=== PATIENT | male | born 1985 | race Caucasian/White ===

== ENCOUNTER → 2020-11-14 | Outpatient (CLI) | payer BC ==
--- NOTE | 2020-11-14 14:21 | US ---
EXAMINATION TYPE: US kidneys/renal and bladder DATE OF EXAM: 11/14/2020 COMPARISON: NONE CLINICAL HISTORY: N20.0 Calculus of kidney. left flank pain EXAM MEASUREMENTS: Right Kidney: 12.3 x 4.9 x 5.4 cm Left Kidney: 11.9 x 6.1 x 4.9 cm *limitations due to patient's body habitus and overlying bowel content Right Kidney: no evidence of hydronephrosis Left Kidney: no evidence of hydronephrosis Bladder: appears wnl Bilateral Jets seen: no IMPRESSION: Normal renal ultrasound
== END ==
LOC: RADUSWWP 13:29
PROVIDERS: ATTEND Family Medicine
DX: N20.0 Calculus of kidney (principal)
CPT/HCPCS: 76770

== ENCOUNTER → 2021-07-21 | Outpatient (CLI) | payer BC ==
[2021-07-21 17:29] LABS: Basophils # (A) 0.07 X 10*3/uL (0.00-0.10); Basophils % (A) 0.7 %; Eosinophils % (A) 2.1 %; HCT 42.3 % (39.6-50.0); HGB 13.2 g/dL (13.0-17.0); Lymphocytes # (A) 1.93 X 10*3/uL (0.90-5.00); Lymphocytes % (A) 20.4 %; MCH 26.8 pg (27.0-32.0); MCHC 31.2 g/dL (32.0-37.0); MCV 85.8 fL (80.0-97.0); Mean Platelet Volume 11.2 fL (9.5-12.2); Monocytes # (A) 1.16 X 10*3/uL (0.20-1.00); Monocytes % (A) 12.3 %; Neutrophils % (A) 63.4 %; Platelet Count 273 X 10*3/uL (140-440); RBC 4.93 X 10*6/uL (4.40-5.60); WBC 9.46 X 10*3/uL (4.50-10.00)
[2021-07-21 18:02] LABS: ALT 48 U/L (10-49); AST 25 U/L (14-35); African American GFR (CKD) 127.4 (60.0-200.0); Albumin 4.6 g/dL (3.8-4.9); Albumin/Globulin Ratio 2.01 (1.60-3.17); Alkaline Phosphatase 62 U/L (41-126); BUN/Creat Ratio 16.49 Ratio (12.00-20.00); Blood Urea Nitrogen 14.2 mg/dL (9.0-27.0); Calcium 9.5 mg/dL (8.7-10.3); Carbon Dioxide 28.7 mmol/L (21.6-31.8); Chloride 102 mmol/L (96-109); Globulin 2.3 g/dL (1.6-3.3); Glucose 107 mg/dL (70-110); LDL Cholesterol,Calculated 83.5 mg/dL (0.0-131.0); Potassium 4.2 mmol/L (3.5-5.5); Sodium 141 mmol/L (135-145); Total Protein 6.9 g/dL (6.2-8.2)
== END | disposition home or self-care (01) ==
LOC: LABWHC1 07-20 09:24
PROVIDERS: ATTEND Family Medicine
DX: I10 Essential (primary) hypertension (principal); E11.9 Type 2 diabetes mellitus without complications; E66.01 Morbid (severe) obesity due to excess calories; Z68.41 Body mass index [BMI] 40.0-44.9, adult
CPT/HCPCS: 36415; 80053; 80061; 82043; 82570; 83036; 85025

== ENCOUNTER → 2023-02-03 | Outpatient (CLI) | payer BC ==
[2023-02-03 19:58] LABS: Basophils # (A) 0.06 X 10*3/uL; Basophils % (A) 0.8 %; Eosinophils # (A) 0.23 X 10*3/uL; Eosinophils % (A) 2.9 %; HCT 44.3 %; HGB 14.1 d/dL; Lymphocytes # (A) 1.86 X 10*3/uL; Lymphocytes % (A) 23.4 %; MCHC 31.8 d/dL; MCV 84.7 FL; Mean Platelet Volume 11.4 FL; Monocytes # (A) 1.01 X 10*3/uL; Monocytes % (A) 12.7 %; NRBC Per 100 WBC 0 X 10*3/uL; Neutrophils # (A) 4.73 X 10*3/uL; Neutrophils % (A) 59.4 %; Platelet Count 250 X 10*3/uL; RBC 5.23 X 10*6/uL; WBC 7.95 X 10*3/uL
[2023-02-03 20:46] LABS: ALT 35 U/L; AST 24 U/L; Albumin 4.6 d/dL; Albumin/Globulin Ratio 1.84 Ratio; Alkaline Phosphatase 65 U/L; BUN/Creat Ratio 18.78 Ratio; Blood Urea Nitrogen 16.9 mg/dL; Calcium 9.9 mg/dL; Chloride 101 mmol/L; Chol/HDL Ratio 5.34 Ratio; Globulin 2.5 d/dL; Glucose 86 mg/dL; Potassium 4.2 mmol/L; Sodium 141 mmol/L; Total Bilirubin 0.5 mg/dL; Total Protein 7.1 d/dL
== END | disposition home or self-care (01) ==
LOC: LABWHC1 12:45
PROVIDERS: ATTEND Family Medicine
DX: Z00.00 Encounter for general adult medical examination without abnormal findings (principal); I10 Essential (primary) hypertension
CPT/HCPCS: 36415; 80053; 80061; 82306; 84443; 85025

== ENCOUNTER 2023-04-28 20:40 | Emergency (ER) | payer OTHER, BC ==
[2023-04-28 20:48] VITALS: RESP 18; TEMP 98.2
[2023-04-28] MEDS ORDERED: FLUORESCEIN STRIPS 1 MG STRIP RIGHT EYE ONE (22:27)
--- NOTE | 2023-04-28 22:57 | ED ---
Eye Problem HPI - General Chief complaint: Eye Problems Stated complaint: Eye injury Time Seen by Provider: 04/28/23 22:07 Source: patient Mode of arrival: ambulatory Limitations: no limitations - History of Present Illness Initial comments: The patient is a 38-year-old gentleman with history of diabetes presents emergency room with complaints of a contusion with bleeding to the right eye. Patient was at work at 9 AM and a small tool flew up and hit him in the right eye. He had some mild discomfort for a few seconds otherwise had no pain. Patient continued to work the rest of the day but when he got home this evening he noticed the eye was bleeding. He believes it is coming from the inner lower eyelid. Patient denies any pain to the eye. He denies any pain with eye movement or any sensitivity to light. He denies any excessive tearing. He denies any vision changes. Patient does not wear contacts or glasses. - Related Data Patient Tetanus UTD: Yes Previous Rx's Medication Instructions Recorded Ondansetron Odt [Zofran Odt] 4 mg PO Q8HR PRN #20 tab 10/22/22 Tobramycin 0.3% Ophth Soln [Tobrex 2 drop RIGHT EYE Q4H 7 Days #7 ml 04/28/23 0.3% Ophth Soln] Allergies Allergy/AdvReac Type Severity Reaction Status Date / Time No Known Allergies Allergy Verified 10/22/22 04:42 Review of Systems ROS Statement: Those systems with pertinent positive or pertinent negative responses have been documented in the HPI. ROS Other: All systems not noted in ROS Statement are negative. Past Medical History Past Medical History: Diabetes Mellitus, Hypertension Past Surgical History: No Surgical Hx Reported Past Psychological History: No Psychological Hx Reported Smoking Status: Never smoker Past Alcohol Use History: None Reported Past Drug Use History: None Reported General Exam Limitations: no limitations, language barrier General appearance: in no apparent distress Head exam: Present: normal inspection, other (Mild ecchymosis to the right lower parapatellar region without any significant swelling. No lacerations.) Eye exam: Present: PERRL, EOMI, conjunctival injection, other (Diffuse subconjunctival hemorrhage, no globe involvement or trauma, no blood in the anterior chamber no significant periorbital swelling,) Expanded Eyelids: Laceration: Right (Small superficial laceration at the base of the eye follower the right lower lid meets) Sclera/Conjunctival: Normal Inspection: Right (No fluorescein uptake no warm all slit-lamp exam), Hemorrhage: Right (Diffuse hemorrhage) Anterior chamber: Normal Inspection: Right IOP (R) in mmH IOP (L) in mmH IOP measured with: Tonopen Course Vital Signs 04/28/23 20:44 Temperature 98.2 F Pulse Rate 88 Respiratory 18 Rate Blood Pressure 144/92 O2 Sat by Pulse 98 Oximetry - Reevaluation(s) Reevaluation #1: 04/28/23 23:58 Patient had tobramycin applied in the emergency room. He will be discharged home with a prescription for tobramycin that he is to take. Discussed following up with education and development manager and signs return to the emergency room. Again patient's pressures are within normal limits. No pain with EOM and no visual disturbances. He has no sensitivity to light. Tetanus is up-to-date. There is no abrasions seen on the fluoroscein and peralta lamp and slit-lamp exam Medical Decision Making - Medical Decision Making Was pt. sent in by a medical professional or institution (, PA, HANGER OFF, urgent care, hospital, or senior care...) When possible be specific @ -[No] Did you speak to anyone other than the patient for history (EMS, parent, family, police, friend...)? What history was obtained from this source @ -[No] Did you review nursing and triage notes (agree or disagree)? Why? @ -[I reviewed and agree with nursing and triage notes] Were old charts reviewed (outside hosp., previous admission, EMS record, old EKG, old radiological studies, urgent care reports/EKG's, senior care records)? Report findings @ -[No old charts were reviewed] Differential Diagnosis (chest pain, altered mental status, abdominal pain women, abdominal pain men, vaginal bleeding, weakness, fever, dyspnea, syncope, headache, dizziness, GI bleed, back pain, seizure, CVA, palpatations, mental health, musculoskeletal)? @ -Ruptured globe, corneal abrasion, subconjunctival hemorrhage EKG interpreted by me (3pts min.). @ -[As above] X-rays interpreted by me (1pt min.). @ -[None done] CT interpreted by me (1pt min.). @ -[None done] U/S interpreted by me (1pt. min.). @ -[None done] What testing was considered but not performed or refused? (CT, X-rays, U/S, labs)? Why? @ -[None] What meds were considered but not given or refused? Why? @ -[None] Did you discuss the management of the patient with other professionals (professionals i.e. , PA, HANGER OFF, lab, RT, psych nurse, health and social care teacher, die repairer forging, teacher, international first officer, wrapper caser)? Give summary @ -Discussed patient's injury, workup and management with the attending ED physician Dr. Carcamo Was smoking cessation discussed for >3mins.? @ -[No] Was critical care preformed (if so, how long)? @ -[No] Were there social determinants of health that impacted care today? How? (Homelessness, low income, unemployed, alcoholism, drug addiction, transportation, low edu. Level, literacy, decrease access to med. care, prison, rehab)? @ -[No] Was there de-escalation of care discussed even if they declined (Discuss DNR or withdrawal of care, Hospice)? DNR status @ -[No] What co-morbidities impacted this encounter? (DM, HTN, Smoking, COPD, CAD, Cancer, CVA, ARF, Chemo, Hep., AIDS, mental health diagnosis, sleep apnea, morbi d obesity)? @ -Diabetes Was patient admitted / discharged? Hospital course, mention meds given and route, prescriptions, significant lab abnormalities, going to OR and other pertinent info. @ -Patient is stable to follow up as an outpatient with education and development manager. He does not require admission at this time. Understands I return to the emergency room. Undiagnosed new problem with uncertain prognosis? @ -Subconjunctival hemorrhage, superficial eyelid laceration,. Perioorbital contusion Drug Therapy requiring intensive monitoring for toxicity (Heparin, Nitro, Insulin, Cardizem)? @ -[No] Were any procedures done? @ -[No] Diagnosis/symptom? @ -Subconjunctival hemorrhage, superficial eyelid laceration,. Perioorbital contusion Acute, or Chronic, or Acute on Chronic? @ -Acute Uncomplicated (without systemic symptoms) or Complicated (systemic symptoms)? @ -Uncomplicated Side effects of treatment? @ -[No] Exacerbation, Progression, or Severe Exacerbation? @ -[No] Poses a threat to life or bodily function? How? (Chest pain, [place], [place], pneumonia, PE, COPD, DKA, ARF, appy, cholecystitis, CVA, Diverticulitis, Homicidal, Suicidal, threat to staff... and all critical care pts) @ -[No] Disposition Clinical Impression: Eyelid laceration, right, Subconjunctival hemorrhage, Periorbital contusion Disposition: HOME SELF-CARE Condition: Good Instructions (If sedation given, give patient instructions): Tobramycin (Into the eye), Subconjunctival Hemorrhage (ED) Prescriptions: Tobramycin 0.3% Ophth Soln [Tobrex 0.3% Ophth Soln] 2 drop RIGHT EYE Q4H 7 Days #7 ml Is patient prescribed a controlled substance at d/c from ED?: No Referrals: Kristofer Sierra MD [Primary Care Provider] - 1-2 days Kenny Smith MD [STAFF PHYSICIAN] - 1-2 days Time of Disposition: 11:50
[2023-04-28] MEDS ORDERED: TOBRAMYCIN 0.3% OPHTH DROPS 5 ML BTL RIGHT EYE STA (23:13)
[2023-04-29 00:02] VITALS: BP 137/90; PULSE 80
== END 2023-04-29 00:02 | disposition home or self-care (01) ==
LOC: EC 20:40
DX: S01.111A Laceration without foreign body of right eyelid and periocular area, initial encounter (principal); H11.31 Conjunctival hemorrhage, right eye; E11.9 Type 2 diabetes mellitus without complications; I10 Essential (primary) hypertension; W22.8XXA Striking against or struck by other objects, initial encounter
CPT/HCPCS: 99283

== ENCOUNTER 2023-09-12 15:37 | Emergency (ER) | payer OTHER, BC ==
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
[2023-09-12 17:04] LABS: Basophils # (A) 0.1 k/uL (0-0.2); Basophils % (A) 0 %; Eosinophils # (A) 0.3 k/uL (0-0.7); Eosinophils % (A) 3 %; HCT 41.5 % (39.0-53.0); HGB 13.8 gm/dL (13.0-17.5); Lymphocytes # (A) 2.2 k/uL (1.0-4.8); Lymphocytes % (A) 19 %; MCH 27.4 pg (25.0-35.0); MCHC 33.2 g/dL (31.0-37.0); MCV 82.5 fL (80.0-100.0); Monocytes # (A) 0.9 k/uL (0-1.0); Monocytes % (A) 8 %; Neutrophils # (A) 7.7 k/uL (1.3-7.7); Neutrophils % (A) 68 %; Platelet Count 265 k/uL (150-450); RBC 5.03 m/uL (4.30-5.90); RDW 13.9 % (11.5-15.5); WBC 11.3 k/uL (3.8-10.6)
[2023-09-12 17:11] LABS: ALT 36 U/L (4-49); AST 32 U/L (17-59); African American GFR (CKD) >90 (>60 ml/min/1.73 sqM); Albumin 4.4 g/dL (3.5-5.0); Alkaline Phosphatase 75 U/L (38-126); Blood Urea Nitrogen 13 mg/dL (9-20); Calcium 9.4 mg/dL (8.4-10.2); Carbon Dioxide 29 mmol/L (22-30); Glucose 85 mg/dL (74-99); Non-African American GFR(CKD) >90 (>60 ml/min/1.73 sqM); Total Bilirubin 0.5 mg/dL (0.2-1.3); Total Protein 7.4 g/dL (6.3-8.2)
[2023-09-12 17:18] LABS: Partial Thromboplastin Time 26.7 sec (22.0-30.0); Prothrombin Time 10.8 sec (10.0-12.5)
[2023-09-12 17:26] LABS: Anion Gap 10 mmol/L; Chloride 100 mmol/L (98-107); Potassium 3.9 mmol/L (3.5-5.1); Sodium 139 mmol/L (137-145)
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
--- NOTE | 2023-09-12 18:01 | XR ---
EXAMINATION TYPE: XR shoulder complete LT DATE OF EXAM: 09/12/2023 COMPARISON: NONE HISTORY: Pain TECHNIQUE: Shoulder examined in 3 projections. FINDINGS: The humeral head articulates with the glenoid. The acromio-clavicular junction is normal. No acute fractures or dislocations are evident. A follow up study can be performed 7-10 days from acute trauma for continued pain. MRI can be perfor med if soft tissue evaluation would be of benefit. IMPRESSION: 1. No acute osseous shoulder abnormality.
[2023-09-12 19:11] VITALS: RESP 18; TEMP 98.1
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
[2023-09-12 20:15] VITALS: BP 129/87; PULSE 86
== END 2023-09-12 20:13 | disposition home or self-care (01) ==
LOC: EC 15:37
DX: M54.9 Dorsalgia, unspecified (principal); I10 Essential (primary) hypertension; E11.9 Type 2 diabetes mellitus without complications; V89.2XXA Person injured in unspecified motor-vehicle accident, traffic, initial encounter; Y92.410 Unspecified street and highway as the place of occurrence of the external cause
CPT/HCPCS: 36415; 80053; 85025; 85610; 85730; 73030; 71046; 74177; 99284; Q9967

== ENCOUNTER 2023-10-22 08:45 | Emergency (ER) | payer BC, OTHER ==
[2023-10-22 08:55] VITALS: BP 142/94; PULSE 93; RESP 16; TEMP 98.1
[2023-10-22] MEDS: SODIUM CHLORIDE 0.9% 1,000 ML IV STA (09:08)
--- NOTE | 2023-10-22 09:09 | ED ---
General Adult HPI - General Chief complaint: Abdominal Pain Stated complaint: ABD PAIN Time Seen by Provider: 10/22/23 08:46 Source: patient Mode of arrival: ambulatory Limitations: no limitations - History of Present Illness Initial comments: Dictation was produced using [employer] dictation software. please excuse any grammatical, word or spelling errors. Chief Complaint: 38-year-old male presents to the emergency department for abdominal cramping History of Present Illness: Patient is a 38-year-old male he has past medical history of diabetes mellitus hypertension. For the last 4 to 5 days he has been having intermittent episodes of epigastric cramping. States that when he eats, 30 to 40 minutes later he starts to have some epigastric cramping with some dry heaving. States that he does not have emesis. He is passing gas and having normal bowel movements. States that he does feel a very light dull discomfort in his left lower quadrant that is also intermittent. Denies any fever, chills or night sweats. No history of abdominal surgery. The ROS documented in this emergency department record has been reviewed and confirmed by me. Those systems with pertinent positive or negative responses have been documented in the HPI. All other systems are other negative and/or noncontributory. - Related Data Previous Rx's Medication Instructions Recorded Ondansetron Odt [Zofran Odt] 4 mg PO Q8HR PRN #20 tab 10/22/22 Tobramycin 0.3% Ophth Soln [Tobrex 2 drop RIGHT EYE Q4H 7 Days #7 ml 04/28/23 0.3% Ophth Soln] Pantoprazole [Protonix] 40 mg PO DAILY 14 Days #14 tab 10/22/23 Allergies Allergy/AdvReac Type Severity Reaction Status Date / Time No Known Allergies Allergy Verified 09/12/23 15:50 Review of Systems ROS Statement: Those systems with pertinent positive or pertinent negative responses have been documented in the HPI. ROS Other: All systems not noted in ROS Statement are negative. Past Medical History Past Medical History: Diabetes Mellitus, Hypertension Past Surgical History: No Surgical Hx Reported Past Psychological History: No Psychological Hx Reported Smoking Status: Never smoker Past Alcohol Use History: None Reported Past Drug Use History: None Reported General Exam - General Exam Comments Initial Comments: PHYSICAL EXAM: General Impression: Alert and oriented x3, not in acute distress HEENT: Normocephalic atraumatic, extra-ocular movements intact, pupils equal and reactive to light bilaterally, mucous membranes moist. Cardiovascular: Heart regular rate and rhythm Chest: Able to complete full sentences, no retractions, no tachypnea Abdomen: abdomen soft, mild tenderness to the epigastrium and left lower quadrant r, non-distended, no organomegaly Musculoskeletal: Pulses present and equal in all extremities, no peripheral edema Motor: no focal deficits noted Neurological: CN II-XII grossly intact, no focal motor or sensory deficits noted Skin: Intact with no visualized rashes Psych: Normal affect and mood Limitations: no limitations Course Vital Signs 10/22/23 08:48 Temperature 98.1 F Pulse Rate 93 Respiratory 16 Rate Blood Pressure 142/94 O2 Sat by Pulse 99 Oximetry Medical Decision Making - Medical Decision Making Was pt. sent in by a medical professional or institution (, PA, SHOULDER JOINER, urgent care, hospital, or prison...) When possible be specific @ -No Did you speak to anyone other than the patient for history (EMS, parent, family, police, friend...)? What history was obtained from this source @ -No Did you review nursing and triage notes (agree or disagree)? Why? @ -I reviewed and agree with nursing and triage notes Were old charts reviewed (outside hosp., previous admission, EMS record, old EKG, old radiological studies, urgent care reports/EKG's, prison records)? Report findings @ -No old charts were reviewed Differential Diagnosis (chest pain, altered mental status, abdominal pain women, abdominal pain men, vaginal bleeding, musculoskeletal, weakness, fever, dyspnea, syncope, headache, dizziness, GI bleed, back pain, seizure, CVA, palpatations, mental health)? @ -Differential Abdominal Pain Men: Appendicitis, cholecystitis, diverticulosis, ischemic bowel, pancreatitis, hepatitis, UTI, gastroenteritis, AAA, incarcerated hernia, bowel obstruction, constipation, inflammatory bowel, hepatitis, peptic ulcer disease, splenic infarction, perforated viscus, testicular torsion, this is not meant to be an all-inclusive list EKG interpreted by me (3pts min.). @ -None done X-rays interpreted by me (1pt min.). @ -None done CT interpreted by me (1pt min.). @ -None done U/S interpreted by me (1pt. min.). @ -None done What testing was considered but not performed or refused? (CT, X-rays, U/S, labs)? Why? @ -None What meds were considered but not given or refused? Why? @ -None Did you discuss the management of the patient with other professionals (professionals i.e. , PA, SHOULDER JOINER, lab, RT, psych nurse, home health care social worker, water taxi operator, teacher, traffic control officer, dependency case manager)? Give summary @ -No Was smoking cessation discussed for >3mins.? @ -No Was critical care preformed (if so, how long)? @ -No Were there social determinants of health that impacted care today? How? (Homelessness, low income, unemployed, alcoholism, drug addiction, transportation, low edu. Level, literacy, decrease access to med. care, penitentiary, rehab)? @ -No Was there de-escalation of care discussed even if they declined (Discuss DNR or withdrawal of care, Hospice)? DNR status @ -No What co-morbidities impacted this encounter? (DM, HTN, Smoking, COPD, CAD, Cancer, CVA, ARF, Chemo, Hep., AIDS, mental health diagnosis, sleep apnea, morbid obesity)? @ -None Was patient admitted / discharged? Hospital course, mention meds given and route, prescriptions, significant lab abnormalities, going to OR and other pertinent info. @ -38-year-old male presents to the emergency department for intermittent episodes of abdominal cramping. Vital signs are stable. Patient has soft abdomen that is nonsurgical. Seems that he has postprandial symptoms though not consistent. He does not have any right upper quadrant tenderness. Negative Mendez sign. Abdominal x-ray negative. Laboratory evaluation is unremarkable. This point there is no emergent processes identified. Patient given prescription for Protonix and referral to the GI specialist Undiagnosed new problem with uncertain prognosis? @ -No Drug Therapy requiring intensive monitoring for toxicity (Heparin, Nitro, Insulin, Cardizem)? @ -No Were any procedures done? @ -No Diagnosis/symptom? Acute, or Chronic, or Acute on Chronic? Uncomplicated (without systemic symptoms) or Complicated (systemic symptoms)? @ -Abdominal pain, no high risk features Side effects of treatment? @ -No Exacerbation, Progression, or Severe Exacerbation? @ -No Poses a threat to life or bodily function? How? (Chest pain, USA, MT, pneumonia, PE, COPD, DKA, ARF, appy, cholecystitis, CVA, Diverticulitis, Homicidal, Suicidal, threat to staff... and all critical care pts) @ -No - Lab Data Result diagrams: 10/22/23 09:05 10/22/23 09:05 Lab Results 10/22/23 10/22/23 Range/Units 09:05 09:05 WBC 11.4 H (3.8-10.6) k/uL RBC 5.70 (4.30-5.90) m/uL Hgb 15.7 (13.0-17.5) gm/dL Hct 47.1 (39.0-53.0) % MCV 82.7 (80.0-100.0) fL MCH 27.5 (25.0-35.0) pg MCHC 33.3 (31.0-37.0) g/dL RDW 13.9 (11.5-15.5) % Plt Count 280 (150-450) k/uL MPV 8.6 Neutrophils % 75 % Lymphocytes % 13 % Monocytes % 8 % Eosinophils % 3 % Basophils % 0 % Neutrophils # 8.5 H (1.3-7.7) k/uL Lymphocytes # 1.5 (1.0-4.8) k/uL Monocytes # 1.0 (0-1.0) k/uL Eosinophils # 0.3 (0-0.7) k/uL Basophils # 0.0 (0-0.2) k/uL Sodium 138 (137-145) mmol/L Potassium 4.2 (3.5-5.1) mmol/L Chloride 103 (98-107) mmol/L Carbon Dioxide 28 (22-30) mmol/L Anion Gap 7 mmol/L BUN 14 (9-20) mg/dL Creatinine 1.00 (0.66-1.25) mg/dL Est GFR (CKD-EPI)AfAm >90 (>60 ml/min/1.73 sqM) Est GFR (CKD-EPI)NonAf >90 (>60 ml/min/1.73 sqM) Glucose 97 (74-99) mg/dL Calcium 9.5 (8.4-10.2) mg/dL Total Bilirubin 1.0 (0.2-1.3) mg/dL AST 25 (17-59) U/L ALT 23 (4-49) U/L Alkaline Phosphatase 74 (38-126) U/L Total Protein 7.2 (6.3-8.2) g/dL Albumin 4.4 (3.5-5.0) g/dL Lipase 119 (23-300) U/L Disposition Clinical Impression: Abdominal pain Disposition: HOME SELF-CARE Condition: Fair Instructions (If sedation given, give patient instructions): Abdominal Pain (ED) Prescriptions: Pantoprazole [Protonix] 40 mg PO DAILY 14 Days #14 tab Is patient prescribed a controlled substance at d/c from ED?: No Referrals: Kristofer Sierra MD [Primary Care Provider] - 1-2 days Traci Vidal MD [STAFF PHYSICIAN] - 1-2 days Time of Disposition: 11:05
[2023-10-22 09:39] LABS: Basophils % (A) 0 %; Eosinophils # (A) 0.3 k/uL (0-0.7); Eosinophils % (A) 3 %; HCT 47.1 % (39.0-53.0); HGB 15.7 gm/dL (13.0-17.5); Lymphocytes # (A) 1.5 k/uL (1.0-4.8); Lymphocytes % (A) 13 %; MCH 27.5 pg (25.0-35.0); MCHC 33.3 g/dL (31.0-37.0); MCV 82.7 fL (80.0-100.0); Mean Platelet Volume 8.6; Monocytes % (A) 8 %; Neutrophils # (A) 8.5 k/uL (1.3-7.7); Neutrophils % (A) 75 %; Platelet Count 280 k/uL (150-450); RDW 13.9 % (11.5-15.5); WBC 11.4 k/uL (3.8-10.6)
--- NOTE | 2023-10-22 10:05 | XR ---
EXAMINATION TYPE: XR abdomen 1V DATE OF EXAM: 10/22/2023 9:45 AM CLINICAL INDICATION:Male, 38 years old with history of abdominal cramping; COMPARISON: None. TECHNIQUE: One radiographic view of the abdomen was obtained. FINDINGS: The bowel gas pattern is nonspecific without dilated loops of small or large bowel. There i s no evidence for organomegaly or pneumoperitoneum. The osseous structures are intact. No abnormal calcifications are present. Fecal material and gas are demonstrated throughout the colon and rectum. IMPRESSION: Nonspecific bowel gas pattern without radiographic evidence for acute process.
[2023-10-22 10:15] LABS: ALT 23 U/L (4-49); AST 25 U/L (17-59); African American GFR (CKD) >90 (>60 ml/min/1.73 sqM); Albumin 4.4 g/dL (3.5-5.0); Alkaline Phosphatase 74 U/L (38-126); Anion Gap 7 mmol/L; Blood Urea Nitrogen 14 mg/dL (9-20); Calcium 9.5 mg/dL (8.4-10.2); Carbon Dioxide 28 mmol/L (22-30); Chloride 103 mmol/L (98-107); Glucose 97 mg/dL (74-99); Lipase 119 U/L (23-300); Non-African American GFR(CKD) >90 (>60 ml/min/1.73 sqM); Potassium 4.2 mmol/L (3.5-5.1); Sodium 138 mmol/L (137-145); Total Protein 7.2 g/dL (6.3-8.2)
[2023-10-22] MEDS: PANTOPRAZOLE 40 MG/10 ML VIAL IVP STA (11:15)
== END 2023-10-22 11:28 | disposition home or self-care (01) ==
LOC: EC 08:45
DX: R10.13 Epigastric pain (principal); E11.9 Type 2 diabetes mellitus without complications; I10 Essential (primary) hypertension
CPT/HCPCS: 36415; 80053; 83690; 85025; 74018; 99284; 96374; 96361; C9113

== ENCOUNTER 2024-02-18 09:52 | Day surgery (SDC) | payer BC ==
[2024-02-13 15:33] VITALS: BMI 36.4
[2024-02-18 10:10] VITALS: RESP 16; TEMP 97.8
[2024-02-18] MEDS: LACTATED RINGERS 1,000 ML BAG IV STA (10:14)
[2024-02-18] MEDS: IV FLUID CONTINUATION 1,000 ML IV ONE (10:14)
[2024-02-18 10:20] LABS: Glucose,Whole Blood 83 mg/dL (70-110)
[2024-02-18] MEDS ORDERED: LIDOCAINE 1% INJ 10MG/ML (20 ML MDV) ONE (10:26)
[2024-02-18] MEDS ORDERED: PROPOFOL 10 MG/ML 20 ML VIAL IV ONE (10:26)
--- NOTE | 2024-02-18 10:38 | P.PCN ---
Date of Procedure: 02/18/24 Procedure(s) Performed: BRIEF HISTORY: Patient is a 38-year-old, pleasant, white male scheduled for an upper endoscopy as a part of evaluation of GERD longstanding history of GERD and epigastric pain for the last several months duration. He is presently on omeprazole 20 mg daily symptoms are gradually improving however since he was started on the Ozempic 7 months ago he has been having worsening epigastric pain and heartburn. He is scheduled for an upper endoscopy to evaluate further.. PROCEDURE PERFORMED: Esophagogastroduodenoscopy biopsy. PREOPERATIVE DIAGNOSIS: Chronic epigastric pain and longstanding history of GERD. IV sedation per anesthesia. PROCEDURE: After informed consent was obtained, the patient was brought into the endoscopy unit. IV sedation was administered by Anesthesia under continuous monitoring. Initially the Olympus GIF-140 video endoscope was inserted into the mouth. Esophagus intubated without any difficulty. It was gradually advanced into the stomach and duodenum and carefully examined. The bulb and the second part of the duodenum appeared normal. The scope at this time was withdrawn to the stomach, adequately insufflated with air, and upon careful examination, mucosa of the antrum, had gastritis and biopsies were done from this area. Mucosa of the body, cardia and the fundus appeared normal. The scope was then withdrawn into the esophagus. The GE junction was located at 43 cm from the incisors. There was 1 superficial erosion at the GE junction consistent with LA grade a reflux esophagitis. Rest of the esophagus appeared normal and the patient tolerated the procedure well. IMPRESSION: 1. Mild antral gastritis. 2. One superficial erosion at the GE junction consistent with LA grade A reflux esophagitis.. RECOMMENDATIONS: The findings of this examination were discussed with the patient as well as his family. He was advised to continue with omeprazole 20 mg daily and follow antireflux measures. Discussed antireflux measures and diet modification..
[2024-02-18 11:09] VITALS: BP 114/77; PULSE 85
== END 2024-02-18 11:46 | disposition home or self-care (01) ==
LOC: ORWHC2ENDO 09:52
PROVIDERS: ATTEND Internal Medicine Gastroenterology
DX: K29.50 Unspecified chronic gastritis without bleeding (principal); K31.A0 Gastric intestinal metaplasia, unspecified; G89.29 Other chronic pain; K21.9 Gastro-esophageal reflux disease without esophagitis; Z79.899 Other long term (current) drug therapy
CPT/HCPCS: 88305; 43239; J2001; J2704